=== PATIENT | male | born 1965 | race Caucasian/White ===

== ENCOUNTER → 2017-03-03 | Outpatient (CLI) | payer BC ==
--- NOTE | 2017-03-04 16:33 | DI ---
MRI RIGHT KNEE SCAN, 03/03/2017 8:53 AM: Clinical History: Arthritis of the right knee. Previous Exam: None at this facility. Technique: Axial, coronal, and sagittal PD and fat saturated PD; axial T1 weighted. There is no soft tissue edema. There is a large joint effusion with synovitis in the suprapatellar bu rsa. A 25 x 25 x 30 mm medial posterior popliteal cyst is present. Bony spurring has developed on the anterior, medial, and lateral margins of the femoral condyles. Increased signal intensity is present in the medial femoral condyle and medial tibial plateau with a focal area of hyperintensity in the m id coronal plane of the lateral tibial plateau. There is another focus of hyperintensity located towa rd the medial aspect of the lateral femoral condyle near the intercondylar notch. These focal areas o f hyperintensity are consistent with bone edema probably secondary to bone contusions. Chronic partia l tears are present in the medial patellofemoral ligament, the medial retinaculum, and the anterior m argin of the medial collateral ligament. The medial meniscofemoral and meniscotibial ligaments have c hronic partial tears. The lateral collateral ligament has a chronic partial tear near its attachment to the lateral femoral condyle. There is complete rupture of the anterior cruciate ligament. There is intermediate signal intensity on the posterior margin of Hoffa's fat pad and this may represent remn ants of the ACL. The superior half of the posterior cruciate ligament has a chronic partial tear. The anterior meniscofemoral ligament of Wood is intact. A complex tear of the posterior horn and men iscal root is present in the medial meniscus. The lateral meniscus has degenerative change but no tea r is identified. There is tendinosis in the distal portion of the patellar tendon. The quadriceps and popliteus tendons are intact. There are chronic partial tears of the tendons of the medial and later al heads of the gastrocnemius muscle. There is tendinosis is present in the semimembranosus tendon. T he biceps femoris, semitendinosus, gracilis and sartorius tendons are normal. There is complete absen ce of the articular cartilage of the medial tibial plateau and medial femoral condyle almost from ant erior to posterior. There is an osteochondral defect that is developing in the posterior aspect of th e medial femoral condyle. Articular surfaces of lateral compartment are thinned but intact. There is a deep fissure in the cartilaginous surface of the medial facet of the patella consistent with a grad e 3 and possibly a grade 4 chondromalacia. Readin. There is a large joint effusion with synovitis in the suprapatellar bursa and with the 25 x 25 x 3 mm popliteal cyst in the medial compartment. Bone contusions are present in the medial femoral cond yle and the medial tibial plateau with focal areas of bone contusion in the lateral femoral condyle a nd lateral tibial plateau. No identifiable cartilage is visible in the medial compartment on either s shae almost from the most anterior aspect extending posteriorly. A developing osteochondral defect in the medial femoral condyle is noted. There is complete rupture of the ACL and fragments of the ACL ma y be lying deep to Hoffa's fat pad. Chronic partial tears or sprains are present in the LCL, MCL, PCL , the tendons of the medial and lateral heads of the gastrocnemius muscle, the medial meniscotibial a nd meniscofemoral ligaments, the medial patellofemoral ligament, and the medial retinaculum. There is tendinosis in the semimembranosus and quadriceps tendons. A grade 3 and probably a grade 4 chondroma lacia is present in the medial facet of the patella. 2. The quadriceps and popliteus tendons are normal. Degenerative changes are present in the lateral meniscus without evidence of a tear. The articular surfaces of the lateral compartment are thin but i ntact.
== END ==
LOC: MRI 09:33
PROVIDERS: ATTEND Orthopaedic Surgery
DX: M25.561 Pain in right knee (principal); M25.461 Effusion, right knee; M22.41 Chondromalacia patellae, right knee; S83.421A Sprain of lateral collateral ligament of right knee, initial encounter; S83.511A Sprain of anterior cruciate ligament of right knee, initial encounter; S83.411A Sprain of medial collateral ligament of right knee, initial encounter; S83.521A Sprain of posterior cruciate ligament of right knee, initial encounter
CPT/HCPCS: 73721

== ENCOUNTER 2018-07-03 08:00 | Inpatient (IN) ==
[~2018-07-03 08:00] MED LIST: LIDOCAINE W/ SODIUM BICARB 0.5 ML SYR SUBD ONE; ceFAZolin Inj 3 GM in Sodium Chloride 0.9% 100 ML IV ONE
[2018-07-03] MEDS ORDERED: Lactated Ringers 1,000 ML PRIMARY IV ONE ×5 (08:47→17:37)
[2018-07-03] MEDS ORDERED: LIDOCAINE W/ SODIUM BICARB 0.5 ML SYR ONE ×2 (08:47→17:40)
[2018-07-03 10:05] LABS: BILIRUBIN,URINE NEGATIVE (NEG); CLARITY,URINE CLEAR (CLEAR); COLOR,URINE YELLOW (Y); GLUCOSE, URINE (UA) NEGATIVE (NEG); OCCULT BLOOD,URINE NEGATIVE (NEG); PROTEIN,URINE NEGATIVE (NEG); UROBILINOGEN,URINE 0.2 EU/dL (0.2)
[2018-07-03 10:06] LABS: URINE SAMPLE TYPE CLEAN CATCH URINE
[2018-07-03] MEDS: Lactated Ringers 1,000 ML PRIMARY IV SCH ×2 (10:15→17:35)
[2018-07-03 10:26] LABS: Hematocrit [HCT] 48.2 % (42.0-52.0); Hemoglobin [HGB] 16.3 g/dL (14.0-18.0); MEAN CORPUSCULAR HEMOGLOBIN 28.3 PG (27-31); MEAN CORPUSCULAR HGB CONC 33.8 g/dL (33-37); MEAN CORPUSCULAR VOLUME 83.8 FL (80-90); MEAN PLATELET VOLUME 10.8 FL (7.4-12.2); RED BLOOD COUNT 5.75 10^6/uL (4.70-6.10)
[2018-07-03 10:59] LABS: BLOOD UREA NITROGEN 15 mg/dL (7-22); BUN/CREATININE RATIO 21.42 (6-20)
[2018-07-03] MEDS ORDERED: Sodium Chloride 0.9% vial 60 ML ONE (11:27)
[2018-07-03] MEDS ORDERED: BACITRACIN 50,000 UNIT VIAL IRRIG ONE (11:27)
[2018-07-03] MEDS ORDERED: BUPivacaine Liposome/PF (Exparel) Inj 20ml vial INFIL ONE (11:28)
[2018-07-03] MEDS ORDERED: TRANEXAMIC ACID 1,000 MG / 10 ML VIAL ONE (11:31)
[2018-07-03] MEDS ORDERED: Tranexamic Acid 1,000 MG in Sodium Chloride 0.9% 100 ML IV SCH (12:00)
[2018-07-03] MEDS ORDERED: Ketorolac Inj 30 MG, Morphine Inj 5 MG, BUPivacaine Inj 0.25% PF 150 MG SPLASH ONE ×3 (12:00)
[2018-07-03] MEDS ORDERED: Sodium Chloride 0.9% 0 ML ONE (12:12)
[2018-07-03] MEDS ORDERED: Sodium Chloride 0.9% 250 ML IV ONE (12:12)
[2018-07-03] MEDS ORDERED: Sodium Chloride 0.9% 200 ML IV ONE (12:27)
[2018-07-03] MEDS ORDERED: MIDAZOLAM 5 MG/1 ML ONE (12:39)
[2018-07-03] MEDS ORDERED: fentaNYL Inj 250 MCG/5 ML VIAL ONE ×2 (12:39→16:20)
[2018-07-03] MEDS ORDERED: LIDOCAINE 2%/ EPI 1:200,000 - 20 ML VIAL ONE ×2 (12:39→17:36)
[2018-07-03] MEDS ORDERED: BUPivacaine Inj 0.5% PF (5mg/ml) 30ml vial ONE (12:40)
[2018-07-03] MEDS ORDERED: PROPOFOL 10 MG/1 ML (200 MG/20 ML) VIAL IV ONE (12:53)
[2018-07-03] MEDS ORDERED: LIDOCAINE MPF 2% - 5 ML (20 MG/1 ML) ONE ×2 (12:53→16:07)
[2018-07-03] MEDS ORDERED: SUFENTANIL 50 MCG/1 ML ONE (12:53)
[2018-07-03] MEDS ORDERED: Sodium Chloride 0.9% vial 10 ML ONE (12:54)
[2018-07-03] MEDS ORDERED: LIDOCAINE HCL 2 % 10 ML JELLY URO-JECT TOPICAL ONE (12:54)
[2018-07-03] MEDS ORDERED: Acetaminophen 1000mg Inj 1,000 MG/100 ML VIAL IV ONE (13:06)
[2018-07-03] MEDS ORDERED: LIDOCAINE HCL 2 % 10 ML JELLY URO-JECT TOPICAL PRN (13:20)
[2018-07-03] MEDS ORDERED: KETAMINE 100 MG/1 ML - 5 ML ONE (13:36)
[2018-07-03] MEDS ORDERED: REMIFENTANIL 1 MG/1 ML IV ONE ×3 (13:56→15:16)
[2018-07-03] MEDS ORDERED: HYDROmorphone 2 MG/1 ML IVP PRN (14:17)
[2018-07-03] MEDS ORDERED: ONDANSETRON 4 MG/2 ML VIAL IVP PRN ×2 (14:17→18:19)
[2018-07-03] MEDS ORDERED: LIDOCAINE W/ SODIUM BICARB 0.5 ML SYR SUBD PRN (14:17)
--- NOTE | 2018-07-03 14:17 | CRNA.PROCE ---
Nerve Block Documentation - - Type of Nerve Block Used: Right Adductor Canal Nerve Block Position for Nerve Block: Supine Moniters Used During Block: EKG, SPO2, NIBP Oxygen Supplemented: Yes Sedation Used - Enter Amount in Comment Field [ANES.SEDAT]: Midazolam (mg): Yes (3mg), Fentanyl (mcg): Yes (50mcg) Skin Prep Used: ChloroPrep Draped: No Technique: Nerve Stimulator (with US) Local Anesthetic - Enter Amt in Comment Field [ANES.LOCNB]: 0.5 % Bupivacaine Plain (mL): Yes (20ml), 2 % Xylocaine with Epinephrine 1:200,000 (mL): Yes (20ml ) Additives to Nerve Blocks: Dexamethasone (mg): Yes (8mg(2ml)) - - PreOp Block : Time In: 12:40 PreOp Block : Time Out: 12:53 Anesthesia Time - Other Weight: 147.418 kg Height: 6 ft Body Mass Index (BMI): 44.0
[2018-07-03] MEDS ORDERED: HYDROmorphone 2 MG/1 ML ONE (16:06)
--- NOTE | 2018-07-03 16:46 | ORTHO.OP ---
- - -: See Dictated Operative Report Procedure Codes - Lower Extremity/Knee Procedures Primary Lower Extremity Procedure Code: 88380 : TKA (alexys so MD and pipe HAINES)
[2018-07-03] MEDS ORDERED: Meperidine Inj 50 MG/ML CARPUJECT ONE (16:57)
[2018-07-03] MEDS: Meperidine Inj 50 MG/ML CARPUJECT IVP PRN ×2 (16:58→17:05)
--- NOTE | 2018-07-03 17:06 | CRNA.PROGR ---
Anesthesia Recovery Phase I - Post Anesthesia Evaluation Patient's Condition on Arrival in Phase I: Fair Pain Level: 7
[2018-07-03] MEDS ORDERED: HYDRALAZINE 20 MG/1 ML ONE (17:13)
[2018-07-03] MEDS ORDERED: Prochlorperazine Edisylate Inj 10mg/2ml vial IVP ONE (17:15)
[2018-07-03] MEDS: HYDRALAZINE 20 MG/1 ML IVP ONE ×2 (17:15→17:23)
[2018-07-03] MEDS ORDERED: ONDANSETRON 4 MG/2 ML VIAL ONE (17:17)
--- NOTE | 2018-07-03 17:19 | CRNA.PROGR ---
Anesthesia Time - - Start date: 07/03/18 End date: 07/03/18 - Procedure/Recovery Time Anesthesia : Time In: 13:09 Anesthesia : Time Out: 16:59 Anesthesia : Total Time: 230 - Block Time PreOp Block : Time In: 12:40 PreOp Block : Time Out: 12:53 PreOp Block : Total Time: 13 - Total Anesthesia Time Total Anesthesia Time (minutes): 243 - Other Weight: 147.418 kg Height: 6 ft Body Mass Index (BMI): 44.0 Physical Status: P3 Anesthesia Type: General Anesthesia : ET
[2018-07-03] MEDS ORDERED: Prochlorperazine Edisylate Inj 10mg/2ml vial ONE (17:29)
[2018-07-03] MEDS ORDERED: ROPIVACAINE HCL 7.5 MG/1 ML - 20 ML ONE (17:36)
--- NOTE | 2018-07-03 18:11 | CRNA.PROCE ---
Nerve Block Documentation - - Type of Nerve Block Used: Right Femoral Nerve Block Position for Nerve Block: Supine Moniters Used During Block: EKG, SPO2, NIBP Oxygen Supplemented: Yes Skin Prep Used: ChloroPrep Technique: Nerve Stimulator Nerve Block Needle Used: iSquare 50 mm Stimulation Hz: 2 Stimulation Staring mA: 1.2 Stimulation Ending mA: 0.40 Local Anesthetic - Enter Amt in Comment Field [ANES.LOCNB]: 2 % Xylocaine with Epinephrine 1:200,000 (mL): Yes (20ml), Other Anesthetic: Yes (.75%ropivicaine 20ml) - - PreOp Block : Time In: 17:30 PreOp Block : Time Out: 17:46 Anesthesia Time - Block Time PreOp Block : Time In: 12:40 PreOp Block : Time Out: 12:53 - Other Weight: 147.418 kg Height: 6 ft Body Mass Index (BMI): 44.0
[2018-07-03] MEDS ORDERED: Prochlorperazine Tab 10 MG TAB PO PRN (18:19)
[2018-07-03] MEDS ORDERED: HYDRALAZINE 20 MG/1 ML IVP ONE (18:19)
[2018-07-03] MEDS ORDERED: ACETAMINOPHEN 325 MG TABLET PO PRN (18:19)
[2018-07-03] MEDS ORDERED: Ondansetron ODT Tab 8 MG TAB PO PRN (18:19)
[2018-07-03] MEDS ORDERED: diphenhydrAMINE 25 MG CAPSULE PO PRN (18:19)
[2018-07-03] MEDS ORDERED: BISACODYL 5 MG TABLET PO PRN (18:19)
[2018-07-03] MEDS ORDERED: CALCIUM CARBONATE 500 MG (TUMS) CHEWABLE TABLET PO PRN (18:19)
[2018-07-03] MEDS ORDERED: BISACODYL 10 MG SUPPOSITORY RECTAL PRN (18:19)
[2018-07-03] MEDS ORDERED: MAG HYDROX/AL HYDROX/SIMETH 30 ML SUSP PO PRN (18:19)
[2018-07-03] MEDS ORDERED: DIAZEPAM 5 MG TABLET PO ONE (18:31)
[2018-07-03] MEDS: HYDROcodone-APAP 10 MG-325 MG TABLET PO PRN ×2 (19:06→23:04)
--- NOTE | 2018-07-03 20:41 | CONSULT ---
Consult Note - Consult Consult Date: 07/03/18 Reason for Consult: PostOp Consulation : Ortho Requesting Physician: Dr. Zaman Primary Care Provider: YUDY DAVIS - History of Present Illness History of Present Illness: This is a 53 years old male with medical history significant for history of obesity, hypertension and osteoarthritis who came into the hospital to have right knee replacement and was done today by Dr. Zaman. The hospitalist service were consulted for management of medical issues. The patient himself is denying chest pain or shortness of breath. He said he had some nausea earlier but seemed to be subsided. Earlier he had some pain in his knee and he got some pain medication. Past Medical History Medical History: 1. Left knee pain status post recent fall. 2. Hypertension. 3. Insomnia, shift work related. 4. Anxiety occasionally take lorazepam. Surgical History: Left knee surgery done today. Appendectomy at age 27 Pertinent Family History: Mother of cancer. Past Social History: Does not smoke or drink. Works at the [employer] in [place], [place]. . Has 2 children described as healthy. Tobacco Use: Former Smoker In the Past 12 Months, Have Used or Abuse Any of the Following Substance: None Alcohol Use: None Review of Systems - Review of Systems All Systems: Reviewed & No Additional Complaints Except as Stated Medication / Allergies Home Medications: Home Medications 3 Medication Instructions Recorded Confirmed Type Lisinopril/Hydrochlorothiazide 1 tab PO DAILY tab 01/13/14 07/03/18 History [Lisinopril-Hctz 20-25 mg Tab] Zolpidem Tartrate 1 tab PO DAILY tab 01/13/14 07/03/18 History tramadol 50 mg tablet 50 mg PO .q 6-8hrs PRN #60 tab 03/19/18 07/03/18 Rx diclofenac potassium 50 mg tablet 50 mg PO BID #60 tab 04/11/18 07/03/18 Rx diclofenac 1 % topical gel 2 g TOPICAL QID #100 g 06/20/18 07/03/18 Rx lorazepam 0.5 mg tablet 0.5 mg PO QHS PRN 06/20/18 07/03/18 History Allergies/Adverse Reactions: Allergies 3 Allergy/AdvReac Type Severity Reaction Status Date / Time No Known Allergies Allergy Verified 07/03/18 18:42 Exam - Vitals Vital Signs: Vital Signs Temperature 97.6 F Temperature Source Temporal Artery Scan Pulse Rate [Apical] 78 Pulse Rate [Pulse Oximeter] 92 Pulse Rate 78 Respiratory Rate 18 Blood Pressure [Right Arm] 140/86 Blood Pressure 162/90 Pulse Ox 93 Oxygen Flow Rate 2 Oxygen Delivery Method Room Air Height 6 ft Weight 325 lb - General General Appearance: No Acute Distress, Obese - Head Head Exam: Normal Inspection - Eye Eye Exam: POSITIVE: Normal Appearance - ENT ENT Exam: POSITIVE: Normal Exam - Neck Neck Exam: Normal Inspection - Respiratory Respiratory Exam: POSITIVE: Clear to Auscultation - Bilaterally - Cardiovascular Cardiovascular Exam: POSITIVE: RRR - GI/Abdominal GI/Abdominal Exam: POSITIVE: Normal Bowel Sounds, Non Tender, Non Distended, Soft, No Organomegaly - Rectal Rectal Exam: POSITIVE: Deferred - External Exam: POSITIVE: Deferred Exam: POSITIVE: Deferred - Extremities Additional Extremities Exam Details: Dressing applied to the right knee. SCD applied to both legs. - Neurological Neurological Exam: POSITIVE: Alert, Oriented x 3, CN II-XII Intact, No Facial Droop, Speech Intact / Clear - Psychiatric Psychiatric Exam: POSITIVE: Normal Affect Results - Labs CBC and BMP: 07/03/18 10:18 07/03/18 10:17 Assessment and Plan - Patient Problems (1) Status post total right knee replacement Current Visit: Yes Status: Acute Comment: PT and OT were consulted. Pain medication written. Dr. Zaman put him on Lovenox. Code(s): Z96.651 - Presence of right artificial knee joint (2) Hypertension Current Visit: No Status: Acute Comment: Blood pressure was elevated during surgery he didn't take his blood pressure medication today, he did receive hydralazine during surgery. BP isacceptable now. He said he takes his blood pressure medication twice a day this is not what's in the system. We'll check his home medications. For now I think will watch his blood pressure tonight. Code(s): I10 - Essential (primary) hypertension Qualifiers: Hypertension type: essential hypertension Qualified Code(s): I10 - Essential (primary) hypertension
[2018-07-03] MEDS: ceFAZolin Inj 3 GM in Sodium Chloride 0.9% 100 ML IV SCH (21:07)
[2018-07-03] MEDS: DOCUSATE 100 MG CAPSULE PO SCH (21:08)
[2018-07-03] MEDS: ZOLPIDEM 10 MG TABLET PO SCH (21:09)
[2018-07-04] MEDS ORDERED: ceFAZolin 1 GM VIAL ONE (04:20)
[2018-07-04] MEDS: Lactated Ringers 1,000 ML PRIMARY IV SCH ×2 (04:48→14:39)
[2018-07-04] MEDS: ceFAZolin Inj 3 GM in Sodium Chloride 0.9% 100 ML IV SCH (04:49)
[2018-07-04] MEDS: HYDROcodone-APAP 10 MG-325 MG TABLET PO PRN ×5 (04:54→21:01)
[2018-07-04 06:05] LABS: Hematocrit [HCT] 38.6 % (42.0-52.0); MEAN CORPUSCULAR HEMOGLOBIN 28.8 PG (27-31); MEAN CORPUSCULAR HGB CONC 33.7 g/dL (33-37); MEAN CORPUSCULAR VOLUME 85.4 FL (80-90); MEAN PLATELET VOLUME 11.3 FL (7.4-12.2); RED BLOOD COUNT 4.52 10^6/uL (4.70-6.10)
[2018-07-04 06:38] LABS: BLOOD UREA NITROGEN 16 mg/dL (7-22)
[2018-07-04] MEDS: HYDROCHLOROTHIAZIDE 25 MG TABLET PO SCH (06:45)
--- NOTE | 2018-07-04 07:49 | ORTHO.PROG ---
Last Taken Vital Signs: Vital Signs - Last Taken Temperature 98.4 F 07/04/18 05:00 Pulse Rate 100 07/04/18 05:00 Respiratory Rate 20 07/04/18 05:00 Blood Pressure 152/90 07/04/18 05:00 Pulse Ox 92 07/04/18 05:08 Subjective: Patient notes pain well-controlled this morning Objective: Patient with mild amount of swelling and early ecchymosis good foot and ankle motion. Sciatic nerve functioning well, femoral nerve still with decreased sensation along the distribution. No calf or thigh pain. Good foot and ankle motion. A dressing is in place with no active drainage. Laboratory Results 07/03/18 07/03/18 07/03/18 Range/Units 09:57 10:17 10:17 WBC (4.8-10.8) 10^3/uL RBC (4.70-6.10) 10^6/uL Hgb (14.0-18.0) g/dL Hct (42.0-52.0) % MCV (80-90) FL MCH (27-31) PG MCHC (33-37) g/dL RDW Std Deviation (39-50) fL RDW Coeff of Cinthya (11.5-14.5) % Plt Count (140-350) 10*3/uL MPV (7.4-12.2) FL Sodium 140 (135-145) meq/L Potassium 4.2 (3.8-5.2) meq/L Chloride 106 (98-112) meq/L Carbon Dioxide 25 (23-33) meq/L Anion Gap 9 (5-20) BUN 15 (7-22) mg/dL Creatinine 0.7 (0.70-1.50) mg/dL Estimated GFR > 60 (>60 ml/min/1.73m(2)) BUN/Creatinine Ratio 21.42 H (6-20) Glucose 102 (78-110) mg/dL Calculated Osmolality 290.0 (267-292) mOsm/kg Calcium 9.0 (8.7-10.7) mg/dL Ur Collection Type Clean catch urine Urine Color Yellow (Y) Urine Clarity Clear (CLEAR) Urine pH 7.0 (5.0-8.5) Ur Specific Zaleski 1.015 (1.005-1.030) Urine Protein Negative (NEG) mg/dl Urine Glucose (UA) Negative (NEG) mg/dL Urine Ketones Negative (NEG) Urine Occult Blood Negative (NEG) Urine Nitrate Negative (NEG) Urine Bilirubin Negative (NEG) Urine Urobilinogen 0.2 (0.2) EU/dL Ur Leukocyte Esterase Negative (NEG) Blood Type B POSITIVE Antibody Screen Negative 07/03/18 07/04/18 07/04/18 Range/Units 10:18 05:00 05:08 WBC 11.18 H 14.89 H (4.8-10.8) 10^3/uL RBC 5.75 4.52 L (4.70-6.10) 10^6/uL Hgb 16.3 13.0 L (14.0-18.0) g/dL Hct 48.2 38.6 L (42.0-52.0) % MCV 83.8 85.4 (80-90) FL MCH 28.3 28.8 (27-31) PG MCHC 33.8 33.7 (33-37) g/dL RDW Std Deviation 47.4 48.2 (39-50) fL RDW Coeff of Cinthya 15.5 H 15.6 H (11.5-14.5) % Plt Count 284 267 (140-350) 10*3/uL MPV 10.8 11.3 (7.4-12.2) FL Sodium 137 (135-145) meq/L Potassium 4.6 (3.8-5.2) meq/L Chloride 102 (98-112) meq/L Carbon Dioxide 24 (23-33) meq/L Anion Gap 11 (5-20) BUN 16 (7-22) mg/dL Creatinine 0.8 (0.70-1.50) mg/dL Estimated GFR > 60 (>60 ml/min/1.73m(2)) BUN/Creatinine Ratio 20.00 (6-20) Glucose 125 H (78-110) mg/dL Calculated Osmolality 285.0 (267-292) mOsm/kg Calcium 8.6 L (8.7-10.7) mg/dL Ur Collection Type Urine Color (Y) Urine Clarity (CLEAR) Urine pH (5.0-8.5) Ur Specific Zaleski (1.005-1.030) Urine Protein (NEG) mg/dl Urine Glucose (UA) (NEG) mg/dL Urine Ketones (NEG) Urine Occult Blood (NEG) Urine Nitrate (NEG) Urine Bilirubin (NEG) Urine Urobilinogen (0.2) EU/dL Ur Leukocyte Esterase (NEG) Blood Type Antibody Screen Intake and Output - 8hrs 07/03/18 07/03/18 07/04/18 07/04/18 13:59 21:59 05:59 13:59 Intake: IV 4150 / 4150 1000 / 1000 Intake Oral Amount 1265 / 1265 600 / 600 Output: Output, Urinary Catheter Amount 250 / 250 2250 / 2250 Output, Estimated Blood Loss 400 / 400 Amount Other: Drains right knee Negative Pressure Drain Number of Voids 1 Weight 147.418 kg 147.418 kg Weight Measurement Method Standing Scale Vital Signs (24 hrs) Temp Pulse Pulse Pulse Resp BP BP 07/04/18 05:08 07/04/18 05:00 98.4 F 100 20 152/90 07/03/18 23:02 97.8 F 91 18 144/86 07/03/18 20:36 97.6 F 92 18 140/86 07/03/18 19:30 98.1 F 82 17 139/91 07/03/18 19:00 96.9 F 83 16 148/87 07/03/18 18:47 97.1 F 83 18 152/86 07/03/18 18:30 97.1 F 84 16 138/86 07/03/18 18:22 78 07/03/18 18:19 97.3 F 80 16 154/84 07/03/18 18:08 97.6 F 78 20 162/90 07/03/18 17:58 97.6 F 78 20 168/85 07/03/18 17:48 78 20 171/93 07/03/18 17:43 77 20 158/84 07/03/18 17:38 96.8 F 77 20 181/108 07/03/18 17:33 77 20 181/108 07/03/18 17:28 75 20 184/106 07/03/18 17:21 75 20 162/105 07/03/18 17:18 76 20 179/111 07/03/18 17:12 80 22 174/108 07/03/18 17:02 80 22 173/124 07/03/18 16:58 79 22 189/117 07/03/18 16:52 97 F 77 22 169/110 07/03/18 10:15 96.8 F 82 20 114/107 Pulse Ox 07/04/18 05:08 92 07/04/18 05:00 92 07/03/18 23:02 92 07/03/18 20:36 93 07/03/18 19:30 91 07/03/18 19:00 92 07/03/18 18:47 96 07/03/18 18:30 92 07/03/18 18:22 07/03/18 18:19 93 07/03/18 18:08 96 07/03/18 17:58 96 07/03/18 17:48 96 07/03/18 17:43 96 07/03/18 17:38 96 07/03/18 17:33 96 07/03/18 17:28 96 07/03/18 17:21 96 07/03/18 17:18 96 07/03/18 17:12 97 07/03/18 17:02 99 07/03/18 16:58 99 07/03/18 16:52 99 07/03/18 10:15 94 Assessment: Right total knee replacement doing well patient with femoral nerve block in addition to abductor block for supplementation his pain control Plan: Patient will begin physical therapy and occupational therapy but caution will be needed because of his size and he has a femoral nerve block in place. No weight what so ever on the involved right leg. Pain control with oral and IV medication DVT prophylaxis with pneumatic sequentials and Lovenox 30 mg subcutaneous.
[2018-07-04] MEDS: ENOXAPARIN SODIUM 30 MG/0.3 ML SYRINGE SUBCUT SCH ×2 (09:25→21:02)
[2018-07-04] MEDS: LISINOPRIL 20 MG TABLET PO SCH (09:25)
--- NOTE | 2018-07-04 09:25 | DI ---
RIGHT KNEE, 07/03/2018 4:31 PM: Clinical History: Status post total knee replacement. M17.11 Unilateral primary osteoarthritis, righ t knee. Previous Exam: 11/06/2015. AP and lateral views are submitted. The patient is status post total right knee replacement. The pros thetic joint articulates normally. A Provena wound evacuation device is present. Reading: Status post total right knee replacement. The prosthetic joint articulates normally.
[2018-07-04] MEDS: DOCUSATE 100 MG CAPSULE PO SCH ×2 (09:26→21:02)
--- NOTE | 2018-07-04 10:03 | PDOC(PROG) ---
Date and Time of Service: 07/04/2018 9 AM Interval History: Subjective Patient feels well. Denying symptoms. Pain seemed to be controlled. Objective : Data - Labs CBC and BMP: 07/04/18 05:08 07/04/18 05:00 Objective : Exam - General General Appearance: No Acute Distress - Head Head Exam: Normal Inspection - Eye Eye Exam: Normal Appearance - ENT ENT Exam: Normal Exam - Neck Neck Exam: Normal Inspection - Respiratory Respiratory Exam: Clear to Auscultation - Bilaterally - Cardiovascular Cardiovascular Exam: RRR - GI/Abdominal GI/Abdominal Exam: Normal Bowel Sounds, Non Tender, Non Distended, Soft, No Organomegaly - Rectal Rectal Exam: Deferred - External Exam: Deferred Exam: Deferred - Extremities Additional Extremities Exam Details: Dressing applied to the wound. Looks clean. - Back Back Exam: Normal Inspection - Neurological Neurological Exam: Alert, Oriented x 3, CN II-XII Intact, No Facial Droop, Speech Intact / Clear - Psychiatric Psychiatric Exam: Normal Affect Assessment and Plan - Patient Problems (1) Status post total right knee replacement Current Visit: Yes Status: Acute Comment: Continue PT and OT. For DVT prophylaxis he is on Lovenox. Code(s): Z96.651 - Presence of right artificial knee joint (2) Hypertension Current Visit: No Status: Acute Comment: Same blood pressure medication Code(s): I10 - Essential (primary) hypertension Qualifiers: Hypertension type: essential hypertension Qualified Code(s): I10 - Essential (primary) hypertension
[2018-07-04] MEDS: traMADol 50 MG TABLET PO PRN ×2 (11:08→18:09)
--- NOTE | 2018-07-04 12:22 | CRNA.PROGR ---
Anesthesia Note - Progress Notes Anesthesia Progress Note: Post OP Anesthesia Note Pt is sitting up in bed, just finished eating lunch and is resting comfortably. he is tolerating a regular diet, and pain is well under control. He has been up with PT this morning. He denies any residual problems of a GETA or regional anesthetic. Current VSS. Vital Signs - Last Taken Temperature 98.6 F 07/04/18 09:00 Pulse Rate 98 07/04/18 09:00 Respiratory Rate 20 07/04/18 09:00 Blood Pressure 161/96 07/04/18 09:00 Pulse Ox 92 07/04/18 09:00
[2018-07-04] MEDS: HYDROmorphone 2 MG/1 ML IVP PRN ×9 (13:17→23:40)
[2018-07-04] MEDS: DIAZEPAM 5 MG TABLET PO PRN (14:29)
--- NOTE | 2018-07-04 17:06 | ORTHO.PROG ---
Last Taken Vital Signs: Vital Signs - Last Taken Temperature 98.7 F 07/04/18 17:00 Pulse Rate 75 07/04/18 17:00 Respiratory Rate 20 07/04/18 17:00 Blood Pressure 205/108 07/04/18 17:00 Pulse Ox 92 07/04/18 17:00 Subjective: Patient's pain is increased distances afternoon after doing therapy and is blocked apparently has worn off. Objective: Examination shows that the negative pressure dressing is in place. There is ecchymosis and bruising to mild to moderate extent with some mild swelling. Good motion of the foot and ankle and toes otherwise. Or thigh pain. Vital Signs (24 hrs) Temp Pulse Pulse Pulse Resp BP BP 07/04/18 17:00 98.7 F 75 20 205/108 07/04/18 12:51 97.7 F 86 20 164/85 07/04/18 09:00 98.6 F 98 20 161/96 07/04/18 05:08 07/04/18 05:00 98.4 F 100 20 152/90 07/03/18 23:02 97.8 F 91 18 144/86 07/03/18 20:36 97.6 F 92 18 140/86 07/03/18 19:30 98.1 F 82 17 139/91 07/03/18 19:00 96.9 F 83 16 148/87 07/03/18 18:47 97.1 F 83 18 152/86 07/03/18 18:30 97.1 F 84 16 138/86 07/03/18 18:22 78 07/03/18 18:19 97.3 F 80 16 154/84 07/03/18 18:08 97.6 F 78 20 162/90 07/03/18 17:58 97.6 F 78 20 168/85 07/03/18 17:48 78 20 171/93 07/03/18 17:43 77 20 158/84 07/03/18 17:38 96.8 F 77 20 181/108 07/03/18 17:33 77 20 181/108 07/03/18 17:28 75 20 184/106 07/03/18 17:21 75 20 162/105 07/03/18 17:18 76 20 179/111 07/03/18 17:12 80 22 174/108 Pulse Ox 07/04/18 17:00 92 08/08/18 12:51 92 07/04/18 09:00 92 07/04/18 05:08 92 07/04/18 05:00 92 07/03/18 23:02 92 07/03/18 20:36 93 07/03/18 19:30 91 07/03/18 19:00 92 07/03/18 18:47 96 07/03/18 18:30 92 07/03/18 18:22 07/03/18 18:19 93 07/03/18 18:08 96 07/03/18 17:58 96 07/03/18 17:48 96 07/03/18 17:43 96 07/03/18 17:38 96 07/03/18 17:33 96 07/03/18 17:28 96 07/03/18 17:21 96 07/03/18 17:18 96 07/03/18 17:12 97 Assessment: Right total knee replacement Plan: Continue current plan try to control his symptoms with the IV dye lauded every hour and the oral pain medication and also has Valium written for muscle spasms that she had earlier today around the area of the tourniquet.
[2018-07-04] MEDS: ZOLPIDEM 10 MG TABLET PO SCH (21:02)
[2018-07-05] MEDS: HYDROcodone-APAP 10 MG-325 MG TABLET PO PRN ×6 (00:31→20:51)
[2018-07-05] MEDS: HYDROmorphone 2 MG/1 ML IVP PRN ×9 (00:31→23:10)
[2018-07-05] MEDS: DIAZEPAM 5 MG TABLET PO PRN ×2 (00:35→08:06)
[2018-07-05 05:57] LABS: Hematocrit [HCT] 37.6 % (42.0-52.0); Hemoglobin [HGB] 12.6 g/dL (14.0-18.0); MEAN CORPUSCULAR HEMOGLOBIN 28.5 PG (27-31); MEAN CORPUSCULAR HGB CONC 33.5 g/dL (33-37); MEAN CORPUSCULAR VOLUME 85.1 FL (80-90); MEAN PLATELET VOLUME 11.1 FL (7.4-12.2); RED BLOOD COUNT 4.42 10^6/uL (4.70-6.10)
[2018-07-05 06:07] LABS: BLOOD UREA NITROGEN 13 mg/dL (7-22); BUN/CREATININE RATIO 18.57 (6-20)
[2018-07-05] MEDS: HYDROCHLOROTHIAZIDE 25 MG TABLET PO SCH (06:57)
[2018-07-05] MEDS: traMADol 50 MG TABLET PO PRN ×3 (07:00→18:45)
[2018-07-05] MEDS: ENOXAPARIN SODIUM 30 MG/0.3 ML SYRINGE SUBCUT SCH ×2 (08:06→20:52)
[2018-07-05] MEDS: LISINOPRIL 20 MG TABLET PO SCH (08:06)
[2018-07-05] MEDS: DOCUSATE 100 MG CAPSULE PO SCH ×2 (08:06→20:51)
--- NOTE | 2018-07-05 09:42 | PTI REPORT ---
Thank you for the referral of Amado Orozco. He was seen on 07/04/18 for an inpatient evaluation status post right total knee arthroplasty. SUBJECTIVE: The patient is a 53-year-old male. The patient reports that he lives at home in [place] with his and two young kids. The patient has had a knee surgery before, so he does have a walker and his house is handicap accessible. The patient reports he just got feeling back in his leg. The patient would like to go home by the weekend and is willing to work hard to be able to get home as soon as possible. PAST MEDICAL HISTORY: Past medical history can be found in the patient's medical record. OBJECTIVE FINDINGS: General observations: The patient is on catheter and IV. Bed mobility: The patient required min assist x1 for supine to sit transfer with head of bed elevated. Transfers: The patient required contact guard to min assist x2 for sit to stand transfer while right lower extremity was in knee immobilizer. The patient required mod cues for stand to sit transfer. Ambulation: The patient required min assist x2 for ambulation approximately 5 feet to his chair. ASSESSMENT: The patient is a 53-year-old male that presents status post right total knee. The patient would benefit from skilled therapy in order to improve overall functional mobility. The patient's prognosis for therapy is good. Problem List: Decreased strength Decreased functional mobility Short-Term Goals: To be met by discharge from inpatient: Patient will be independent with all transfers. Patient will be able to ambulate 150 feet with walker. Patient will be able to ascend and descend 1 step in order to return home safely. Long-Term Goals: To be met following discharge from inpatient: Patient will be seen by outpatient physical therapy. TREATMENT PLAN: Patient will be seen B.I.D during the week and one time per day over the weekend as an inpatient to address the above goals and objectives. INITIAL TREATMENT: Treatment today consisted of the initial evaluation. The patient did not tolerate any further activity today and was left in chair with chair alarm activated and call light within reach. [facility] HOSPITALKimberly
--- NOTE | 2018-07-05 10:43 | PDOC(PROG) ---
Date of Service: 07/05/18 Time of Service: 10:40 Interval History: Subjective Patient feels better this morning compared to last night. Last night he said his pain got out of control and we had to increase the dosage of the Dilaudid, it is better controlled today. He is denying other symptoms. Objective : Data - Labs CBC and BMP: 07/05/18 05:30 07/05/18 05:30 Objective : Exam - General General Appearance: No Acute Distress, Cooperative - Head Head Exam: Normal Inspection - Eye Eye Exam: Normal Appearance - ENT ENT Exam: Normal Exam - Neck Neck Exam: Normal Inspection - Respiratory Respiratory Exam: Clear to Auscultation - Bilaterally - Cardiovascular Cardiovascular Exam: RRR - GI/Abdominal GI/Abdominal Exam: Normal Bowel Sounds, Non Tender, Non Distended, Soft, No Organomegaly - Rectal Rectal Exam: Deferred - External Exam: Deferred - Extremities Additional Extremities Exam Details: Dressing applied to the right knee. Looks clean. No edema. SCD applied to both legs. - Back Back Exam: Normal Inspection - Neurological Neurological Exam: Alert, Oriented x 3, CN II-XII Intact, No Facial Droop, Speech Intact / Clear - Psychiatric Psychiatric Exam: Normal Affect Assessment and Plan - Patient Problems (1) Status post total right knee replacement Current Visit: Yes Status: Acute Comment: Continue PT and OT. For pain he is on hydrocodone and tramadol. He is on Dilaudid for breakthrough pain. He does not want to make changes to his pain medications. I think one possible addition is OxyContin if pain still uncontrolled. He found the Valium to be helpful for his leg spasm. There is some leukocytosis may be secondary to the stress of surgery. There is no fever and no concern for infection now. He will have another repeat tomorrow. For DVT prophylaxis he is on Lovenox Code(s): Z96.651 - Presence of right artificial knee joint (2) Hypertension Current Visit: No Status: Acute Comment: Continue current medications. Blood pressure is somewhat elevated may be secondary to the pain will watch it. Code(s): I10 - Essential (primary) hypertension Qualifiers: Hypertension type: essential hypertension Qualified Code(s): I10 - Essential (primary) hypertension
--- NOTE | 2018-07-05 12:04 | PT.PROG ---
Progress Note Progress Note: S. Patient stated that he is in quite a bit of pain this morning. O. Patient transferred from supine to standing then ambulated 10 feet to the wheelchair and was wheeled to the therapy gym where he had heat to his knee then performed heel slides, quad sets, ankle pumps, short arc quads, seated knee flexion all x 10, patient then performed sit to stands x 5 and ambulated 40 feet to the wheelchair and was returned to his room where he was left in bed with alarm and call light. A. patient tolerated therapy fair, he was struggling with pain and continues to have quad insufficiency therefore continues to use knee immobilizer. Patient would continue to benefit from skilled therapy to increase strength and mobility at this time. P. Continue POC.
--- NOTE | 2018-07-05 12:55 | OTI REPORT ---
Thank you for the referral of Amado Orozco. He was seen on 07/05/18 for an occupational therapy inpatient evaluation status post right total knee arthroplasty. SUBJECTIVE: The patient is a 53-year-old male who had a right total knee replacement on 06/13. In the past the patient has had a left aba-knee arthroplasty. The patient does have his own bariatric walker. His home set up includes one or two steps to the entrance of his home and no steps within his home. He lives at home with his and two children in [place], [place]. The patient works at the [employer] and reports that he has to do a lot of standing throughout work. The patient is hoping to return home Monday as he has an appointment set up for outpatient therapy at 3:00 PM. PAST MEDICAL HISTORY: Past medical history can be found in the patient's medical record. OBJECTIVE FINDINGS: Pain: The patient rates his pain as a 4 to 5/10 on the verbal analog scale (0= no pain, 10=worst pain). Bed mobility: The patient demonstrated the ability to move from sitting upright in bed to edge of bed with minimal assistance to move the right lower extremity. Transfers: The patient performed a sit to stand transfer from a modified bed height with contact guard assistance. Ambulation: The patient demonstrated the ability to ambulate x15 feet to the bathroom where he completed toilet transfer with contact guard assist for safety. Activities of daily living: The patient completed toilet hygiene tasks independently. The patient completed pants management with minimal assistance. The patient worked on lower extremity dressing with use of a gauge controller. He was able to don his shorts with use of a gauge controller with modified independence. The patient completed upper extremity dressing with set up assistance. Range of motion/Strength: The patient's upper extremity range of motion is within functional limits. Strength is 5/5 throughout. ASSESSMENT: The patient's rehab potential is good. Problem List: Decreased ability to complete lower extremity dressing Decreased functional mobility Decreased standing activity tolerance Short-Term Goals: To be met by discharge from inpatient: Patient will demonstrate the ability to complete lower extremity dressing to include donning and doffing pants, shorts, and socks with use of adaptive equipment and modified independence. Patient will demonstrate the ability to stand at the sink x5 minutes and complete standing grooming tasks. Patient will complete all functional transfers to include bed/toilet/chair with contact guard assist only. Long-Term Goals: To be met following discharge from inpatient: Patient will return home and will be seen by outpatient physical therapy in [place]. TREATMENT PLAN: Patient will be seen B.I.D during the week and one time per day over the weekend as an inpatient to address the above goals and objectives. INITIAL TREATMENT: Treatment today consisted of the initial evaluation followed by lower extremity dressing, toileting task, and functional mobility. MIRZA
--- NOTE | 2018-07-05 15:04 | ORTHO.PROG ---
Last Taken Vital Signs: Vital Signs - Last Taken Temperature 96.8 F 07/05/18 12:28 Pulse Rate 95 07/05/18 12:28 Respiratory Rate 16 07/05/18 12:28 Blood Pressure 141/92 07/05/18 12:28 Pulse Ox 93 07/05/18 12:28 Subjective: Patient notes doing relatively well today did have some pain after therapy but feels he is making good progress Objective: Examination shows that the patient is negative suction dressing is in place no active drainage no evidence of infection or thigh pain. A mild amount of swelling about the knee. Neurovascularly intact. Able to fire his quads today. Laboratory Results 07/05/18 07/05/18 Range/Units 05:30 05:30 WBC 16.31 H (4.8-10.8) 10^3/uL RBC 4.42 L (4.70-6.10) 10^6/uL Hgb 12.6 L (14.0-18.0) g/dL Hct 37.6 L (42.0-52.0) % MCV 85.1 (80-90) FL MCH 28.5 (27-31) PG MCHC 33.5 (33-37) g/dL RDW Std Deviation 48.4 (39-50) fL RDW Coeff of Cinthya 15.7 H (11.5-14.5) % Plt Count 241 (140-350) 10*3/uL MPV 11.1 (7.4-12.2) FL Sodium 137 (135-145) meq/L Potassium 4.1 (3.8-5.2) meq/L Chloride 100 (98-112) meq/L Carbon Dioxide 28 (23-33) meq/L Anion Gap 9 (5-20) BUN 13 (7-22) mg/dL Creatinine 0.7 (0.70-1.50) mg/dL Estimated GFR > 60 (>60 ml/min/1.73m(2)) BUN/Creatinine Ratio 18.57 (6-20) Glucose 108 (78-110) mg/dL Calculated Osmolality 284.0 (267-292) mOsm/kg Calcium 8.4 L (8.7-10.7) mg/dL Intake and Output - 8hrs 08/08/18 08/09/18 08/09/18 08/09/18 21:59 05:59 13:59 21:59 Intake: Intake Oral Amount 1460 / 1460 600 / 600 690 / 690 1000 / 1000 Breakfast 240 / 240 Dinner 360 / 360 Lunch 350 / 350 Output: Output, Urinary Catheter Amount 650 / 650 Output, Urine Amount 200 / 200 Other: Percent Meal Consumed Breakfast 25% Dinner 25% Lunch 50% Number of Voids 1 1 Vital Signs (24 hrs) Temp Pulse Pulse Resp BP BP Pulse Ox 07/05/18 12:28 96.8 F 95 16 141/92 93 07/05/18 09:00 97.0 F 92 20 158/98 92 07/05/18 05:00 97.7 F 89 20 149/81 91 07/04/18 23:59 98.3 F 77 20 185/89 91 07/04/18 19:50 98.9 F 84 16 171/94 91 07/04/18 19:00 78 75 20 07/04/18 17:00 98.7 F 75 20 205/108 92 Assessment: Right total knee replacement Plan: Continue current plan with continued oral and IV pain medication. DVT prophylaxis with Lovenox and pneumatic sequential devices. Continue with physical therapy and occupational therapy.
--- NOTE | 2018-07-05 17:20 | PT.PROG ---
Progress Note Progress Note: S. Patient stated that he is feeling much better this afternoon compared to this morning. O. Patient transferred from supine to standing then ambulated 15 feet to the wheelchair and was wheeled to the therapy gym where he had heat to his knee then performed heel slides, quad sets, ankle pumps, short arc quads, seated knee flexion all x 10, patient then performed sit to stands x 10 and standing weight shifts x 10 then ambulated 50 feet to the wheelchair and was returned to his room where he was left in bed with alarm and call light. A. patient tolerated therapy well, he was able to perform exercises with little increase in pain. Patient continues to require mod assist with seated to supine transfers however was able to perform sit to stand transfers with SBG assist. Patient would continue to benefit from skilled therapy to increase strength and mobility at this time. P. Continue POC.
[2018-07-05] MEDS: ZOLPIDEM 10 MG TABLET PO SCH (20:51)
[2018-07-06] MEDS: HYDROcodone-APAP 10 MG-325 MG TABLET PO PRN ×2 (03:28→07:22)
[2018-07-06 05:18] LABS: Hematocrit [HCT] 34.7 % (42.0-52.0); Hemoglobin [HGB] 11.6 g/dL (14.0-18.0); MEAN CORPUSCULAR HEMOGLOBIN 28.6 PG (27-31); MEAN CORPUSCULAR HGB CONC 33.4 g/dL (33-37); MEAN CORPUSCULAR VOLUME 85.7 FL (80-90); MEAN PLATELET VOLUME 11.3 FL (7.4-12.2); RED BLOOD COUNT 4.05 10^6/uL (4.70-6.10)
[2018-07-06 05:25] LABS: BLOOD UREA NITROGEN 14 mg/dL (7-22)
[2018-07-06] MEDS: HYDROCHLOROTHIAZIDE 25 MG TABLET PO SCH (07:22)
[2018-07-06 07:32] VITALS: RESP 18
--- NOTE | 2018-07-06 08:39 | ORTHO.PROG ---
Last Taken Vital Signs: Vital Signs - Last Taken Temperature 97.1 F 07/06/18 05:00 Pulse Rate 92 07/06/18 05:00 Respiratory Rate 18 07/06/18 07:00 Blood Pressure 150/82 07/06/18 05:00 Pulse Ox 92 07/06/18 07:00 Subjective: Patient on his second session with therapy yesterday was very well is doing markedly better. Objective: Examination shows the patient has a mild to moderate amount swelling. It is negative pressure dressing is in place with no active issues. No calf or thigh pain. Some early ecchymosis type changes around the knee. Laboratory Results 07/06/18 07/06/18 Range/Units 04:16 04:16 WBC 15.87 H (4.8-10.8) 10^3/uL RBC 4.05 L (4.70-6.10) 10^6/uL Hgb 11.6 L (14.0-18.0) g/dL Hct 34.7 L (42.0-52.0) % MCV 85.7 (80-90) FL MCH 28.6 (27-31) PG MCHC 33.4 (33-37) g/dL RDW Std Deviation 46.9 (39-50) fL RDW Coeff of Cinthya 15.3 H (11.5-14.5) % Plt Count 241 (140-350) 10*3/uL MPV 11.3 (7.4-12.2) FL Sodium 133 L (135-145) meq/L Potassium 3.6 L (3.8-5.2) meq/L Chloride 98 (98-112) meq/L Carbon Dioxide 27 (23-33) meq/L Anion Gap 8 (5-20) BUN 14 (7-22) mg/dL Creatinine 0.8 (0.70-1.50) mg/dL Estimated GFR > 60 (>60 ml/min/1.73m(2)) BUN/Creatinine Ratio 17.50 (6-20) Glucose 106 (78-110) mg/dL Calculated Osmolality 276.0 (267-292) mOsm/kg Calcium 8.4 L (8.7-10.7) mg/dL Intake and Output - 8hrs 07/05/18 07/05/18 07/06/18 07/06/18 13:59 21:59 05:59 13:59 Intake: Intake Oral Amount 690 / 690 1240 / 1240 500 / 500 420 / 420 Breakfast 240 / 240 120 / 120 Dinner 240 / 240 Lunch 350 / 350 Other: Percent Meal Consumed Breakfast 25% 25% Dinner 25% Lunch 50% Number of Voids 1 1 Weight 150.638 kg Weight Measurement Method Built in [facility] Vital Signs (24 hrs) Temp Pulse Pulse Resp BP BP Pulse Ox 07/06/18 07:00 18 92 07/06/18 05:00 97.1 F 92 20 150/82 92 07/06/18 00:09 98.4 F 95 16 131/85 92 07/05/18 21:00 98.1 F 95 20 123/79 93 07/05/18 19:00 78 90 18 07/05/18 16:16 97.7 F 90 18 135/90 94 07/05/18 12:28 96.8 F 95 16 141/92 93 07/05/18 09:00 97.0 F 92 20 158/98 92 Assessment: Right total knee replacement Postoperative anemia A difficult pain control with muscle spasms and discomfort to her. Plan: We will continue current plan with physical therapy and occupational therapy as well as continue DVT prophylaxis with Lovenox and pneumatic sequentials. Pain medication obviously he'll need to be off IV dye a lot of before we send him home. We will have to check with his insurance company we may need to consider rehabilitation unless we see a marked improvement.
[2018-07-06] MEDS: ENOXAPARIN SODIUM 30 MG/0.3 ML SYRINGE SUBCUT SCH (09:38)
[2018-07-06] MEDS: traMADol 50 MG TABLET PO PRN (09:38)
[2018-07-06] MEDS: DIAZEPAM 5 MG TABLET PO PRN (09:38)
[2018-07-06] MEDS: LISINOPRIL 20 MG TABLET PO SCH (09:39)
[2018-07-06] MEDS: DOCUSATE 100 MG CAPSULE PO SCH (09:39)
--- NOTE | 2018-07-06 09:41 | OT.PROG ---
Progress Note Progress Note: Occupational Therapy: S: pt stated that he was not feeling hungry this morning and agreed to therapy. O: pt was educated on use of creative services writer to doff socks and use of sock aide to familia socks. pt performed doffing and donning of socks with 2 VCs on positioning of sock on sock aide and use of fixed knob on creative services writer for doffing socks. A: pt was able to familia and doff sock with MOD I use of creative services writer and sock aide. pt completed task without any increase in pain. P: pt is discharged from skilled OT services due to reaching all functional goals.
--- NOTE | 2018-07-06 12:00 | PT.PROG ---
Progress Note Progress Note: S. Patient stated that he is having a lot of pain this morning, he reports that he is wanting to go home. O. Patient ambulated 50 feet to the wheelchair and was wheeled to the therapy gym where he had heat then performed heel slides, quad sets, ankle pumps, short arc quads all x 10. seated knee flexion x 5 with 30 second holds, Patient then performed 10 sit to stands and ambulated 60 feet to the wheelchair and was returned to his room where he was left in bed with alarm and call light. A. Patient tolerated therapy fair this morning, he continues to struggle with pain however was able to perform exercises. Patient would benefit from outpatient therapy at this time. P. Continue POC until Discharge.
[2018-07-06] MEDS ORDERED: oxyCODONE/APAP 7.5/325 Tab 1 TAB TAB PO PRN ×2 (12:25→12:26)
--- NOTE | 2018-07-06 12:41 | DCSUMMARY ---
Hospitalization Summary Hospital Course: Final Discharge Diagnosis: Current Visit Problems Problem Status Onset Code Status post total right knee replacement Acute Z96.651 Diagnostic Data, Laboratory Data, and Procedures of Signifigance: Laboratory Results 07/06/18 07/06/18 Range/Units 04:16 04:16 WBC 15.87 H (4.8-10.8) 10^3/uL RBC 4.05 L (4.70-6.10) 10^6/uL Hgb 11.6 L (14.0-18.0) g/dL Hct 34.7 L (42.0-52.0) % MCV 85.7 (80-90) FL MCH 28.6 (27-31) PG MCHC 33.4 (33-37) g/dL RDW Std Deviation 46.9 (39-50) fL RDW Coeff of Cinthya 15.3 H (11.5-14.5) % Plt Count 241 (140-350) 10*3/uL MPV 11.3 (7.4-12.2) FL Sodium 133 L (135-145) meq/L Potassium 3.6 L (3.8-5.2) meq/L Chloride 98 (98-112) meq/L Carbon Dioxide 27 (23-33) meq/L Anion Gap 8 (5-20) BUN 14 (7-22) mg/dL Creatinine 0.8 (0.70-1.50) mg/dL Estimated GFR > 60 (>60 ml/min/1.73m(2)) BUN/Creatinine Ratio 17.50 (6-20) Glucose 106 (78-110) mg/dL Calculated Osmolality 276.0 (267-292) mOsm/kg Calcium 8.4 L (8.7-10.7) mg/dL History and Physical pertinent to Admission: Past Medical History Medical History: 1. Left knee pain status post recent fall. 2. Hypertension. 3. Insomnia, shift work related. 4. Anxiety occasionally take lorazepam. Surgical History: Left knee surgery done today. Appendectomy at age 27 Pertinent Family History: Mother of cancer. Past Social History: Does not smoke or drink. Works at the [employer] in [place], [place]. . Has 2 children described as healthy. Course of Hospitalization: Is a very nice 53-year-old male with past medical history significant for obesity, osteoarthritis and hypertension was admitted to the hospital under Dr. Zaman to have his right knee replacement was service was consulted for hypertension. He is done well postop please see the operative note and Dr. Zaman note in regards to his and knee replacement instructions and the therapy also he has his pain medication and anticoagulation as per Dr. Zaman. Blood pressure stable no changes in his meds. She denies chest pain nausea or vomiting today follow-up with Dr. Zaman as arranged by the orthopedic group On the date of discharge, the patient was examined: Gen.: No acute distress, alert, nontoxic Heart: Regular rate and rhythm, no murmurs, clicks, gallops, or rubs Lungs: Clear to auscultation bilaterally, breathing is nonlabored Abdomen/GI: Normal tones on auscultation, soft, nontender, nondistended Musculoskeletal/extremities: No clubbing, cyanosis, or edema Vitals reviewed and are listed below Vital Signs (24 hrs) Temp Pulse Pulse Resp BP BP Pulse Ox 07/06/18 09:42 97.2 F 94 18 128/90 96 07/06/18 07:00 18 92 07/06/18 05:00 97.1 F 92 20 150/82 92 07/06/18 00:09 98.4 F 95 16 131/85 92 07/05/18 21:00 98.1 F 95 20 123/79 93 07/05/18 19:00 78 90 18 07/05/18 16:16 97.7 F 90 18 135/90 94 Assessment and Plan: 1. As per discharge assessments above 2. Disposition: Home outpatient PT OT as per Dr. Zaman 3. Condition on discharge, stable and improved. 4. Diet: regular diet 5. Activities: resume normal activities 6. Follow-Up: Per Dr. Zaman 1. PCP 2. 7. Medications at the Time of Discharge: Home Medications 3 Medication Instructions Recorded Confirmed Type Lisinopril/Hydrochlorothiazide 1 tab PO DAILY tab 01/13/14 07/03/18 History [Lisinopril-Hctz 20-25 mg Tab] Zolpidem Tartrate 1 tab PO DAILY tab 01/13/14 07/03/18 History tramadol 50 mg tablet 50 mg PO .q 6-8hrs PRN #60 tab 03/19/18 07/03/18 Rx lorazepam 0.5 mg tablet 0.5 mg PO QHS PRN 06/20/18 07/03/18 History Enoxaparin Inj [Lovenox Inj] 30 mg SUBCUT BID 12 Days #23 07/06/18 Rx syringe oxyCODONE/APAP 7.5/325 Tab 1 - 2 tab PO Q4H PRN #60 tab 07/06/18 Rx [Percocet 7.5/325 Tab] 8. Time, care, counseling and coordination of care for this discharge is greater than 30 minutes. Exam - Vitals Vital Signs: Vital Signs Temperature 97.2 F Temperature Source Temporal Artery Scan Pulse Rate [Apical] 94 Pulse Rate [Pulse Oximeter] 92 Pulse Rate 78 Respiratory Rate 18 Blood Pressure [Left Arm] 150/82 Blood Pressure [Right Arm] 128/90 Blood Pressure 162/90 Pulse Ox 96 Oxygen Flow Rate 2 Oxygen Delivery Method Room Air Height 6 ft Weight 332 lb 1.6 oz
[2018-07-06 12:51] VITALS: BP 113/65; TEMP 98.6; O2SAT 90
== END 2018-07-06 13:19 | disposition home or self-care (01) | DRG 470 ==
LOC: OPS 09:38 → MED/SURG 18:13
PROVIDERS: ADMIT Orthopaedic Surgery; ATTEND Orthopaedic Surgery